=== PATIENT | female | born 1990 | race Caucasian/White ===

== ENCOUNTER 2021-01-01 09:11 | Emergency (ER) | payer OTHER ==
[~2021-01-01] VITALS: Ht 167.6 cm; Wt 88.5 kg
[2021-01-01] MEDS ORDERED: IMOVAX RABIE2.5 UNIT IM (09:56)
[2021-01-01] MEDS ORDERED: AUGMENTIN 875-1 EACH PO (10:43)
[2021-01-01 10:45] VITALS: BP 117/77
== END 2021-01-01 10:45 | disposition home or self-care (01) ==
LOC: M.ERS 09:11
DX: S61.235A Puncture wound without foreign body of left ring finger without damage to nail, initial encounter (principal); Z90.49 Acquired absence of other specified parts of digestive tract; W55.01XA Bitten by cat, initial encounter; Y93.89 Activity, other specified; Y92.89 Other specified places as the place of occurrence of the external cause; Y99.8 Other external cause status